=== PATIENT | female | born 1945 | race Caucasian/White ===

== ENCOUNTER → 2017-02-27 | Outpatient (CLI) | payer OTHER | LOC: BMCIMAGING 09:51 | PROVIDERS: ATTEND Family Medicine | DX: M25.521 Pain in right elbow (principal) ==

== ENCOUNTER → 2017-10-17 | Outpatient (CLI) | payer OTHER | LOC: BHFA 15:30 | PROVIDERS: ATTEND Internal Medicine Cardiovascular Disease | DX: I34.0 Nonrheumatic mitral (valve) insufficiency (principal) ==

== ENCOUNTER 2018-01-19 13:21 | Emergency (ER) | payer OTHER ==
[2018-01-19] MEDS ORDERED: LET GEL TOPICAL 1 EA SYR TP ONE (13:48)
--- NOTE | 2018-01-19 13:50 | EDPHY ---
H & P Smoking Status: Former smoker Time Seen by Provider: 01/19/18 13:42 HPI/ROS: Chief complaint. Fall HPI. Patient is 72-year-old female who was hiking on a steep trail this morning. She was coming down and tripped and fell downhill striking her head on a rock. Did not lose consciousness. She sustained laceration to the right scalp and upper forehead. She has slight headache and pain to that area but otherwise no real headache. Her vision is okay. No mouth or dental trauma. Denies neck pain or back pain. No chest discomfort or trouble breathing. No shortness of breath. No abdominal pain or vomiting or diarrhea. Left arm is normal. Abrasion to the left knee. Abrasion to the right forearm. Laceration to right knee. Patient was ambulatory and was able to pick herself up and walked about a mi down the trail to the trail head and drive herself to the emergency department. ROS Constitutional. no fever/chills, no weakness Eyes. no problems with vision ENT. no sore throat, no nasal drainage Cardiovascular. no chest pain Respiratory. no shortness of breath, no cough Abdominal. no abdominal pain, no nausea/vomiting, no diarrhea . no problems urinating MS. no calf pain/swelling, no neck/back pain, no joint pain Skin. Abrasions and lacerations Lymph. no swollen glands Neuro. no headache, no dizziness, no difficulty walking or with speech (Francesco Chaudhry) Past Medical/Surgical History: Stage IV kidney failure, Crohn's disease (Francesco Chaudhry) Social History: , nonsmoker, no alcohol (Francesco Chaudhry) Physical Exam: General Appearance: Alert well-developed female moderate distress vital signs are stable Eyes: Pupils equal and round no pallor or injection. ENT, head without bumps. There is a laceration of 2.5 cm to the right upper forehead at the hairline. Tympanic membranes are normal without hemotympanum or Estrada sign. No facial trauma. No oral pharyngeal or dental trauma Respiratory: There are no retractions, lungs are clear to auscultation. Cardiovascular: Regular rate and rhythm. Gastrointestinal: Abdomen is soft and nontender, no masses, bowel sounds normal. Neurological: Awake and alert, sensory and motor exams grossly normal. Skin: Abrasion and skin tear to right forearm. Laceration approximately 4.5 cm to right knee. Abrasion to left knee. Musculoskeletal: Neck is supple nontender. No T, L, S spine pain Extremities symmetrical, full range of motion. Psychiatric: Patient is oriented X 3, there is no agitation. (Isidoro,Francesco S) Constitutional: Initial Vital Signs Temperature (C) 36.6 C 01/19/18 13:26 Heart Rate 74 01/19/18 13:26 Respiratory Rate 16 01/19/18 13:26 Blood Pressure 138/76 H 01/19/18 13:26 O2 Sat (%) 97 01/19/18 13:26 O2 Delivery Mode Room Air Allergies/Adverse Reactions: ceftriaxone [From Rocephin] Allergy (Verified 01/19/18 13:25) ciprofloxacin [From Cipro] Allergy (Verified 01/19/18 13:25) dextromethorphan Allergy (Verified 01/19/18 13:25) haloperidol [From Haldol] Allergy (Verified 01/19/18 13:25) levofloxacin [From Levaquin] Allergy (Verified 01/19/18 13:25) sulfamethoxazole [From Bactrim] Allergy (Verified 01/19/18 13:25) Tetanus Vaccines and Toxoid Allergy (Verified 01/19/18 13:45) trimethoprim [From Bactrim] Allergy (Verified 01/19/18 13:25) Home Medications: Medication Instructions Recorded Allopurinol 01/19/18 Amlodipine Besylate 01/19/18 Escitalopram Oxalate 01/19/18 Estradiol 01/19/18 Singulair 01/19/18 Udesinide 01/19/18 ZYRTEC 01/19/18 Medical Decision Making Procedures: Procedure: Laceration repair. I was requested by Dr. Chaudhry to perform wound closure I explained the indications, risks and benefits for both laceration repair and anesthetic administration. Verbal consent was obtained from the patient . The laceration on the right knee and right frontal region was anesthetized using 0.5 % bupivicaine with epinephrine . After anesthetic administered the patient was observed for a period of time and had no apparent adverse effects. The wound was cleaned, prepped, draped in normal sterile fashion and explored to its base. No foreign body seen, no foreign bodies palpated. There were no deep structures involved. No tendon injury was identified. Forehead laceration closed with 7 simple interrupted 6 0 Prolene sutures. Wound repair was complex Knee laceration closed with 11 simple interrupted 4 0 Prolene sutures. Wound repair was complex The procedure was performed by myself. Patient has been informed that scarring will occur, although efforts have been made to minimize this. (Blanca Zamarripa) Lat is applied to lacerations Tylenol by mouth (Francesco Chaudhry) ED Course/Re-evaluation: Sutures placed by physician tv production assistant Yousif Zamarripa Re-evaluation 3:00 p.m.. Patient is stable. She and I discussed treatment plan including criteria for return importance of follow-up and further evaluation. She expresses understanding and agreement (Francesco Chaudhry) Differential Diagnosis: I have considered head injury, skull fracture, spine injury, chest back abdomen injury. No evidence for fracture. (Francesco Chaudhry) - Data Points Medications Given: Discontinued Medications Acetaminophen (Tylenol) 650 mg PO EDNOW ONE Stop: 01/19/18 13:59 Last Admin: 01/19/18 14:10 Dose: 650 mg Departure - Departure Disposition: Home, Routine, Self-Care Clinical Impression: Multiple abrasions Scalp laceration Qualifiers: Encounter type: initial encounter Qualified Code(s): S01.01XA - Laceration without foreign body of scalp, initial encounter Knee laceration Qualifiers: Encounter type: initial encounter Laterality: right Qualified Code(s): S81.011A - Laceration without foreign body, right knee, initial encounter Condition: Good Instructions: Care For Your Stitches (ED) Additional Instructions: Ice to sore areas today. Tylenol 650 mg every 4-6 hours as needed for discomfort Keep cut clean and dry. You may shower with your stitches in. Return for signs of infection. Stitches and Steri-Strips off in 10 days Vipul bandage on your right knee for 2 days to help reinforce the stitches Referrals: NONE *PRIMARY CARE P,. [Primary Care Provider] - As per Instructions
[2018-01-19] MEDS ORDERED: ACETAMINOPHEN 325 MG TAB PO ONE (13:58)
[2018-01-19 15:09] VITALS: BP 166/74
== END 2018-01-19 15:08 | disposition home or self-care (01) ==
PROC: 0HQKXZZ Repair Right Lower Leg Skin, External Approach (ICD-10-PCS; principal; 2018-01-19)
PROC: 0HQ1XZZ Repair Face Skin, External Approach (ICD-10-PCS; 2018-01-19)
DX: S01.01XA Laceration without foreign body of scalp, initial encounter (principal); S81.011A Laceration without foreign body, right knee, initial encounter; S50.811A Abrasion of right forearm, initial encounter; S80.212A Abrasion, left knee, initial encounter; Z87.891 Personal history of nicotine dependence; W01.198A Fall on same level from slipping, tripping and stumbling with subsequent striking against other object, initial encounter; Y99.8 Other external cause status; Y93.01 Activity, walking, marching and hiking

== ENCOUNTER → 2018-04-27 | Outpatient (CLI) | payer OTHER | LOC: FIMAGING 08:12 | PROVIDERS: ATTEND Psychiatry & Neurology Neurology | DX: R27.0 Ataxia, unspecified (principal) | CPT/HCPCS: 82607-90; 84207-90 ==

== ENCOUNTER → 2018-05-24 | Outpatient (CLI) | payer OTHER | LOC: BMCIMAGING 14:29 | PROVIDERS: ATTEND Internal Medicine | DX: Z12.31 Encounter for screening mammogram for malignant neoplasm of breast (principal) ==

== ENCOUNTER → 2018-05-31 | Outpatient (CLI) | payer OTHER | LOC: BMCIMAGING 10:02 | PROVIDERS: ATTEND Internal Medicine | DX: Z13.820 Encounter for screening for osteoporosis (principal); M85.89 Other specified disorders of bone density and structure, multiple sites ==

== ENCOUNTER → 2018-12-13 | Outpatient (CLI) | payer OTHER | LOC: FIMAGING 10:50 | PROVIDERS: ATTEND Internal Medicine Pulmonary Disease | DX: J47.9 Bronchiectasis, uncomplicated (principal); R91.1 Solitary pulmonary nodule; Z87.891 Personal history of nicotine dependence ==